=== PATIENT | male | born 1995 | race Caucasian/White ===

== ENCOUNTER 2017-07-19 02:39 | Emergency (ER) | payer BC ==
[~2017-07-19] VITALS: Ht 188 cm; Wt 81.8 kg
[2017-07-19 02:46] VITALS: BP 117/77; TEMP 98.3
[2017-07-19 03:34] VITALS: PULSE 74
== END 2017-07-19 03:47 | disposition home or self-care (01) ==
LOC: COL.ER 02:39
DX: S61.210A Laceration without foreign body of right index finger without damage to nail, initial encounter (principal); Z23 Encounter for immunization; W26.8XXA Contact with other sharp object(s), not elsewhere classified, initial encounter; Y92.89 Other specified places as the place of occurrence of the external cause; Y99.0 Civilian activity done for income or pay